=== PATIENT | female | born 1945 | race Caucasian/White ===

== ENCOUNTER 2019-07-16 10:31 | Emergency (ER) | payer MEDICARE, MEDICAID ==
[~2019-07-16] VITALS: Ht 152.4 cm; Wt 39.9 kg
--- NOTE | 2019-07-16 10:46 | NUR ---
pt came into er wtih c/o FALLING FROM A HIGHER PLATFORM AND ONTO HER RIGHT SHOULDER AT ABOUT 1000 THIS MORNING. -KO, CALLED DAUGHTER IMMEDIATELY TO BRING TO ER. PT STATES THAT SHE HEARS A CLICKING WHEN SHE MOVES HER SHOULDERS. AAOX4. AMBULATORY. NO SOB. BREATHS EVENLY AND UNLABORED. WILL CONTINUE TO MONITOR
[2019-07-16 11:50] LABS: BASOPHILS % (AUTO) 0.7 % (0.0-2.0); EOSINOPHILS % (AUTO) 3.3 % (0.0-6.0); HEMATOCRIT 43 % (33-45); HEMOGLOBIN 14.3 g/dL (11.5-14.8); LYMPHOCYTES # (AUTO) 1.2 /CMM (0.8-4.8); LYMPHOCYTES % (AUTO) 20.3 % (20.0-44.0); MEAN CORPUSCULAR HGB CONC 34 g/dl (31.0-36.0); MEAN CORPUSCULAR VOLUME 97 fL (82-100); MONOCYTES # (AUTO) 0.5 /CMM (0.1-1.30); MONOCYTES % (AUTO) 7.9 % (2.0-12.0); NEUTROPHILS % (AUTO) 67.8 % (43.0-81.0); PLATELET COUNT (AUTO) 136 /CMM (150-450); RED BLOOD CELL COUNT(AUTO) 4.38 MIL/uL (4.0-5.2); WHITE BLOOD COUNT (AUTO) 5.9 K/uL (4.3-11.0)
[2019-07-16 11:53] LABS: CALCIUM, SERUM 9.8 mg/dL (8.5-10.1); CARBON DIOXIDE 32 mmol/L (21-32); CHLORIDE 104 mmol/L (98-107); CREATININE 0.7 mg/dL (0.6-1.3); GLUCOSE 131 mg/dL (74-106); POTASSIUM 3.9 mmol/L (3.5-5.1); SODIUM SERUM 139 mmol/L (136-145); UREA NITROGEN, BLOOD 15 mg/dL (7-18)
[2019-07-16] MEDS ORDERED: ASPIRIN 81 MG TAB.CHEW PO ONE (12:00)
[2019-07-16] MEDS ORDERED: ASPIRIN 81 MG TAB.CHEW ONE (12:11)
--- NOTE | 2019-07-16 13:21 | NUR ---
FRUIT SPRAYER ORTHOPEDIC PAGED (KRISS)
--- NOTE | 2019-07-16 14:03 | NUR ---
DESIGN ENG ORTHOPEDIC REPAGED
--- NOTE | 2019-07-16 14:23 | NUR ---
IV removed. Catheter intact and site benign. Pressure and 4x4 applied to site. No bleeding noted. Patient discharged to home in stable condition. Written and verbal after care instructions given. Patient verbalizes understanding of instruction.
[2019-07-16 14:46] VITALS: BP 116/72
== END 2019-07-16 14:48 | disposition home or self-care (01) ==
LOC: ER 10:33
DX: S42.291A Other displaced fracture of upper end of right humerus, initial encounter for closed fracture (principal); R94.31 Abnormal electrocardiogram [ECG] [EKG]; W08.XXXA Fall from other furniture, initial encounter; Y93.89 Activity, other specified; Y92.89 Other specified places as the place of occurrence of the external cause; Y99.8 Other external cause status
CPT/HCPCS: 36415; 71045-TC; 73030-TC; 80048-TC; 84484-TC; 85025-TC

== ENCOUNTER 2019-07-20 20:10 | Emergency (ER) | payer MEDICARE, MEDICAID ==
[~2019-07-20] VITALS: Ht 152.4 cm; Wt 40.4 kg
--- NOTE | 2019-07-20 20:29 | NUR ---
BIBFAMILY C/O R ARM AND CHEST SWELLING AND DISCOLORATION. TO ER BED 1, MADE COMFORTABLE, VSS. ALDRICH AT BEDSIDE
--- NOTE | 2019-07-20 21:00 | NUR ---
Patient discharged to home in stable condition. Written and verbal after care instructions given. Patient verbalizes understanding of instruction.
[2019-07-20 21:02] VITALS: BP 125/71
== END 2019-07-20 21:02 | disposition home or self-care (01) ==
LOC: ER 20:11
DX: S42.291D Other displaced fracture of upper end of right humerus, subsequent encounter for fracture with routine healing (principal); R22.31 Localized swelling, mass and lump, right upper limb; Z88.0 Allergy status to penicillin; W18.39XD Other fall on same level, subsequent encounter